=== PATIENT | female | born 1930 | race Hispanic/Latino ===

== ENCOUNTER 2017-07-04 13:10 | Emergency (ER) | payer MEDICARE ==
[2017-07-04 13:25] VITALS: BMI 25.9
[2017-07-04 13:28] VITALS: RESP 18; TEMP 97.9
[2017-07-04] MEDS ORDERED: Sodium Chloride 0.9% 1,000 ML IV STA (13:49)
[2017-07-04 14:32] LABS: BASO # 0.02 K/mm3 (0.0-2.0); BASO % 0.3 % (0.0-3.0); EOS # 0.1 (0.0-0.7); EOS % 0.8 % (1.5-5.0); GRAN # 4.92 (1.4-6.5); GRAN % 80.7 % (50.0-68.0); HEMATOCRIT 36.9 % (36.0-48.0); LYMPH # 0.7 (1.2-3.4); LYMPH % 11.8 % (22.0-35.0); MEAN CELL VOLUME 84.8 fl (80.0-105.0); MEAN CORPUSCULAR HEMOGLOBIN 28.7 pg (25.0-35.0); MEAN CORPUSCULAR HGB CONC 33.9 g/dl (31.0-37.0); MONO # 0.4 (0.1-0.6); MONO % 6.4 % (1.0-6.0); RED CELL DISTRIBUTION WIDTH 13.7 % (11.5-14.5); WHITE BLOOD COUNT 6.1 10^3/ul (4.5-11.0)
[2017-07-04 14:39] LABS: ALB/GLOB RATIO 1.5 (1.1-1.8); ALKALINE PHOSPHATASE 75 U/L (38-126); ALT/SGPT 36 U/L (7-56); AST/SGOT 39 U/L (14-36); BILIRUBIN,TOTAL 0.6 mg/dL (0.2-1.3); BLOOD UREA NITROGEN 23 mg/dL (7-21); CALCIUM 10.2 mg/dL (8.4-10.5); CARBON DIOXIDE 29 mmol/L (21-33); CHLORIDE 103 mmol/L (98-107); GFR AFRICAN-AMERICAN > 60; GLUCOSE,RANDOM 107 mg/dL (70-110); LIPASE 78 U/L (23-300); POTASSIUM 4.2 mmol/L (3.6-5.0); SODIUM 142 mmol/L (132-148); TOTAL PROTEIN 7.2 g/dL (5.8-8.3)
--- NOTE | 2017-07-04 14:47 | ED PDOC ---
Arrival/HPI - General Chief Complaint: Back Pain Time Seen by Provider: 07/04/17 13:49 Historian: Patient - History of Present Illness Narrative History of Present Illness (Text): 07/04/17 Minerva Roque is an 87 year old who presents to the emergency department complaining of chronic hip pain. Patient reports her PMD gave a shot 2 days ago of Tramadol. She also states feeling nauseated and constipated since her visit to her PMD. Patient denies any trauma, fever, chest pain, shortness of breath, or other complaints. Time/Duration: < week (2 days) Symptom Onset: Sudden Symptom Course: Unchanged Associated Symptoms (Text): constipation and nausea Past Medical History - Provider Review Nursing Documentation Reviewed: Yes - Infectious Disease Hx of Infectious Diseases: None - Tetanus Immunization Tetanus Immunization: Unknown - Cardiac Hx Cardiac Disorders: Yes Hx Hypertension: Yes - Pulmonary Hx Respiratory Disorders: No - Neurological Hx Neurological Disorder: No - HEENT Hx HEENT Disorder: No - Renal Hx Renal Disorder: No - Endocrine/Metabolic Hx Endocrine Disorders: No - Hematological/Oncological Hx Blood Disorders: No - Integumentary Hx Dermatological Disorder: No - Musculoskeletal/Rheumatological Hx Musculoskeletal Disorders: No Hx Falls: No - Gastrointestinal Hx Gastrointestinal Disorders: Yes Hx Diverticulitis: Yes - Genitourinary/Gynecological Hx Genitourinary Disorders: No - Psychiatric Hx Psychophysiologic Disorder: No Hx Substance Use: No - Past Surgical History Past Surgical History: No Previous - Anesthesia Hx Anesthesia: No - Suicidal Assessment Feels Threatened In Home Enviroment: No Family/Social History - Physician Review Nursing Documentation Reviewed: Yes Family/Social History: Unknown Family HX Smoking Status: Never Smoked Hx Alcohol Use: No Hx Substance Use: No Hx Substance Use Treatment: No Allergies/Home Meds Allergies/Adverse Reactions: Allergies No Known Allergies Allergy (Verified 06/06/16 01:48) Home Medications: Home Meds Medication Instructions Recorded Confirmed amLODIPine [Norvasc] 1 tab PO DAILY 06/06/16 07/04/17 Donepezil [Aricept] 1 tab PO DAILY 07/04/17 07/04/17 Review of Systems - Review of Systems Constitutional: absent: Fevers Respiratory: absent: SOB Gastrointestinal: Constipation, Nausea Musculoskeletal: Other (chronic hip pain) Neurological: absent: Headache Physical Exam Vital Signs Reviewed: Yes Vital Signs Temp Pulse Resp BP Pulse Ox 07/04/17 16:42 62 18 168/79 H 98 07/04/17 15:12 64 18 171/86 H 97 07/04/17 13:28 97.9 F 66 18 180/96 H 97 Temperature: Afebrile Blood Pressure: Hypertensive Pulse: Regular Respiratory Rate: Normal Appearance: Positive for: Well-Appearing, Non-Toxic, Comfortable Pain Distress: None Mental Status: Positive for: Alert and Oriented X 3 - Systems Exam Head: Present: Atraumatic, Normocephalic Pupils: Present: PERRL Extroacular Muscles: Present: EOMI Conjunctiva: Present: Normal Mouth: Present: Moist Mucous Membranes Neck: Present: Normal Range of Motion Respiratory/Chest: Present: Clear to Auscultation, Good Air Exchange. No: Respiratory Distress, Accessory Muscle Use Cardiovascular: Present: Regular Rate and Rhythm, Normal S1, S2. No: Murmurs Abdomen: Present: Normal Bowel Sounds. No: Tenderness, Distention, Peritoneal Signs Upper Extremity: Present: Normal Inspection. No: Cyanosis, Edema Lower Extremity: Present: Normal Inspection, Normal ROM. No: Edema, Tenderness Neurological: Present: GCS=15, CN II-XII Intact, Speech Normal Skin: Present: Warm, Dry, Normal Color. No: Rashes Psychiatric: Present: Alert, Oriented x 3, Normal Insight, Normal Concentration Medical Decision Making ED Course and Treatment: Impression: 87 year old female with chronic hip pain. NROM. Plan: -- X-ray abdominal (flat -- Labs -- Urinalysis -- Toradol and Sodium Chloride -- Reassess and disposition Progress Notes: - Lab Interpretations Lab Results: 07/04/17 14:13 07/04/17 14:13 Lab Results 07/04/17 16:15: Urine Color Yellow, Urine Appearance Clear, Urine pH 6.0, Ur Specific [place] >= 1.030, Urine Protein 100 H, Urine Glucose (UA) Negative, Urine Ketones 15 H, Urine Blood Trace-intact H, Urine Nitrate Negative, Urine Bilirubin Negative, Urine Urobilinogen 0.2, Ur Leukocyte Esterase Trace H, Urine RBC 1 - 3, Urine WBC 2 - 5, Ur Epithelial Cells 4 - 5, Amorphous Sediment Few, Urine Bacteria Mod, Hyaline Casts 0 - 2, Fine Granular Casts 0 - 2, Coarse Granular Casts Trace H, Urine Other Fiber 07/04/17 14:13: Sodium 142, Potassium 4.2, Chloride 103, Carbon Dioxide 29, Anion Gap 14, BUN 23 H, Creatinine 0.9, Est GFR ( Amer) > 60, Est GFR ( Non-Af Amer) 59, Random Glucose 107, Calcium 10.2, Total Bilirubin 0.6, AST 39 H , ALT 36, Alkaline Phosphatase 75, Total Protein 7.2, Albumin 4.3, Globulin 2.9 , Albumin/Globulin Ratio 1.5, Lipase 78 07/04/17 14:13: WBC 6.1, RBC 4.35, Hgb 12.5, Hct 36.9, MCV 84.8, MCH 28.7, MCHC 33.9, RDW 13.7, Plt Count 249, MPV 10.0, Gran % 80.7 H, Lymph % (Auto) 11.8 L, [place] % (Auto) 6.4 H, Eos % (Auto) 0.8 L, Baso % (Auto) 0.3, Gran # 4.92, Lymph # 0.7 L, [place] # 0.4, Eos # 0.1, Baso # 0.02 I have reviewed the lab results: Yes - RAD Interpretation Radiology Orders: 07/04/17 14:06 obstructive series [ABD 2 VIEWS (FLAT/UP OR DECUB)] [RAD] Stat Department Chair: Radiologist - Medication Orders Current Medication Orders: Discontinued Medications Sodium Chloride (Sodium Chloride 0.9%) 1,000 mls @ 100 mls/hr IV .Q10H STA Stop: 07/04/17 23:48 Last Admin: 07/04/17 14:13 Dose: 100 mls/hr Ketorolac Tromethamine (Toradol) 15 mg IVP STAT STA Stop: 07/04/17 13:54 Last Admin: 07/04/17 14:13 Dose: 15 mg - Scribe Statement The provider has reviewed the documentation as recorded by the Scribe 07/04/2017 Mellissa Colemanibe Attestation: All medical record entries made by the Scribe were at my direction and personally dictated by me. I have reviewed the chart and agree that the record accurately reflects my personal performance of the history, physical exam, medical decision making, and the department course for this patient. I have also personally directed, reviewed, and agree with the discharge instructions and disposition. Disposition/Present on Arrival - Present on Arrival Any Indicators Present on Arrival: No History of DVT/PE: No History of Uncontrolled Diabetes: No Urinary Catheter: No History of Decub. Ulcer: No History Surgical Site Infection Following: None - Disposition Have Diagnosis and Disposition been Completed?: Yes Diagnosis: Constipation Disposition: HOME/ ROUTINE Disposition Time: 16:30 Condition: GOOD Discharge Instructions (ExitCare): Constipation (ED) Additional Instructions: Thank you for letting us take care of you today. Your provider was Dr. Paz. You were treated for constipation. The emergency medical care you received today was directed at your acute symptoms. If you were prescribed any medication, please fill it and take as directed. It may take several days for your symptoms to resolve. Return to the Emergency Department if your symptoms worsen, do not improve, or if you have any other problems. Please contact your doctor or call one of the physicians/clinics you have been referred to that are listed on the Patient Visit Information form that is included in your discharge packet. Bring any paperwork you were given at discharge with you along with any medications you are taking to your follow up visit. Our treatment cannot replace ongoing medical care by a primary care provider (PCP) outside of the emergency department. Thank you for allowing the [email or web address] team to be part of your care today. Follow up with your doctor in 2-3 days for re-evaluation and further management. Prescriptions: Docusate [Colace] 100 mg PO Q8 PRN #20 cap PRN Reason: Constipation Referrals: Andra Mahmood MD [Primary Care Provider] - Follow up with primary Forms: [employer] (Mongolian)
--- NOTE | 2017-07-04 14:57 | RAD ---
HISTORY: constipation r/o obstruction COMPARISON: No prior. FINDINGS: BOWEL: Normal. No obstruction. No free air. BONES: Normal. OTHER FINDINGS: Gallstones IMPRESSION: No active disease.
[2017-07-04 16:22] LABS: URINE BILIRUBIN NEGATIVE (NEGATIVE); URINE BLOOD TRACE-INTACT (NEGATIVE); URINE GLUCOSE (UA) NEGATIVE (NEGATIVE); URINE KETONE 15 mg/dL (NEGATIVE); URINE LEUKOCYTE ESTERASE TRACE Leu/uL (NEGATIVE); URINE PROTEIN 100 mg/dL (<30 mg/dL); URINE UROBILINOGEN 0.2 E.U./dL (<1 E.U./dL)
[2017-07-04 16:29] LABS: URINE APPEARANCE CLEAR (CLEAR); URINE COLOR YELLOW (YELLOW)
[2017-07-04 16:43] VITALS: BP 168/79; PULSE 62; O2SAT 98
[2017-07-04 17:08] LABS: URINE BACTERIA MOD (NEG)
[2017-07-04 17:10] LABS: URINE AMORPHOUS SEDIMENT FEW
== END 2017-07-04 17:11 | disposition home or self-care (01) ==
LOC: ED 13:10
DX: K59.00 Constipation, unspecified (principal); I10 Essential (primary) hypertension
CPT/HCPCS: 74020; 80053; 81001; 83690; 85025; 87086; 96374; 99283; J1885; J7040